=== PATIENT | male | born 1970 | race Caucasian/White ===

== ENCOUNTER 2019-02-07 10:22 | Inpatient (IN) | payer OTHER ==
[2019-02-07 11:16] VITALS: BMI 21.9
--- NOTE | 2019-02-07 11:43 | HP ---
CIWA Score Nausea/Vomitin-No Nausea/No Vomiting Muscle Tremors: None Anxiety: 4-Mod. Anxious/Guarded Agitation: 0-Normal Activity Paroxysmal Sweats: 2 Orientation: 0-Oriented Tacttile Disturbances: 0-None Auditory Disturbances: 0-None Visual Disturbances: 0-None Headache: 0-None Present CIWA-Ar Total Score: 6 - Admission Criteria OASAS Guidelines: Admission for Medically Managed Detox: Requires at least one of the followin. CIWA greater than 12 2. Seizures within the past 24 hours 3. Delirium tremens within the past 24 hours 4. Hallucinations within the past 24 hours 5. Acute intervention needed for co occurring medical disorder 6. Acute intervention needed for co occurring psychiatric disorder 7. Severe withdrawal that cannot be handled at a lower level of care (continued vomiting, continued diarrhea, abnormal vital signs) requiring intravenous medication and/or fluids 8. Admission ROS [facility] Allergies/Adverse Reactions: Allergies Allergy/AdvReac Type Severity Reaction Status Date / Time No Known Allergies Allergy Verified 02/07/19 11:51 History of Present Illness: pt here requesting detox from etoh use , prior detox at this facility 2014 , reports current use 1 pint/day , first age of use 30 , longest sobriety 1 year while in residential program , relapse Oct 2018 after arrest , reports tremors if not drinking, + sweating , anxiety , starts drinking in the mornings , denies seizures, blackouts , current symptoms as above, latest use Wednesday . tobacco : 1/2 ppd , thinking about smoking cessation. PMHX : kitty inguinal hernia, hip OA PSHX ; denies PSych : MDD , anxiety , PTSD , ADD , denies suicide attempts , denies current SI / Hi , denies current psych meds , states has own psychiatrist @ [facility] [address] [place] [address] , monthly visits. SHx : homeless , unemployed , finances habit through illicit activities . Exam Limitations: No Limitations - Ebola screening Have you traveled outside of the country in the last 21 days: No (N) Have you had contact with anyone from an Ebola affected area: No Do you have a fever: No - Review of Systems Constitutional: Loss of Appetite EENT: reports: No Symptoms Reported, Other (glasses) Respiratory: reports: No Symptoms reported Cardiac: reports: No Symptoms Reported GI: reports: No Symptoms Reported : reports: No Symptoms Reported Musculoskeletal: reports: Joint Pain (kitty hips ( chronic )) Neuro: reports: No Symptoms reported Endocrine: reports: No Symptoms Reported Psychiatric: reports: Orientated x3, Depressed Patient History - Patient Medical History Hx Anemia: No Hx Asthma: No Hx Chronic Obstructive Pulmonary Disease (COPD): No Hx Cancer: No Hx Cardiac Disorders: No Hx Congestive Heart Failure: No Hx Hypertension: No Hx Pacemaker: No HX Cerebrovascular Accident: No Hx Seizures: No Hx Dementia: No Hx Diabetes: No Hx Gastrointestinal Disorders: No Hx Liver Disease: No Hx Genitourinary Disorders: No Hx Sexually Transmitted Disorders: No Hx Renal Disease (ESRD): No Hx Thyroid Disease: No Hx Human Immunodeficiency Virus (HIV): No Hx Hepatitis C: No Hx Depression: Yes Hx Suicide Attempt: Yes Hx Bipolar Disorder: No Hx Schizophrenia: No - Patient Surgical History Past Surgical History: No - PPD History Date: 09/08/14 - Smoking Cessation Smoking history: Current every day smoker Have you smoked in the past 12 months: Yes Aproximately how many cigarettes per day: 10 Cigars Per Day: 0 Hx Chewing Tobacco Use: No Initiated information on smoking cessation: No - Substances abused Alcohol Substance route: Oral Frequency: 3-6 times per week Amount used: 1pint of vodka Age of first use: 30 Date of last use: 02/04/19 K2/Spice Substance route: Smoking Frequency: Daily Amount used: 1 gram Age of first use: 42 Date of last use: 02/06/19 Marijuana/Hashish Substance route: Smoking Frequency: 3-6 times per week Amount used: 1 gram Age of first use: 12 Date of last use: 02/06/19 Family Disease History - Family Disease History Family History: Denies Admission Physical Exam [facility] - Vital Signs Vital Signs: Vital Signs - 24 hr 02/07/19 11:07 Temperature 97.7 F Pulse Rate 69 Respiratory 20 Rate Blood Pressure 126/85 - Physical General Appearance: Yes: No Apparent Distress, Appropriately Dressed HEENTM: Yes: EOMI, Hearing grossly Normal, Normocephalic, Normal Voice Respiratory: Yes: Chest Non-Tender, Lungs Clear, Normal Breath Sounds Neck: Yes: No masses,lesions,Nodules, Trachea in good position Cardiology: Yes: Regular Rhythm, Regular Rate, S1, S2 Abdominal: Yes: Normal Bowel Sounds, Non Tender, Soft Back: Yes: Normal Inspection Musculoskeletal: Yes: full range of Motion, Gait Steady Extremities: Yes: Normal Range of Motion, Non-Tender Neurological: Yes: Fully Oriented, Alert, Motor Strength 5/5, Depressed Affect Integumentary: Yes: Warm - Diagnostic (1) Inhalant dependence with other inhalant-induced disorder Current Visit: Yes Status: Acute (2) Alcohol dependence Current Visit: Yes Status: Chronic Qualifiers: Substance use status: in remission Qualified Code(s): F10.21 - Alcohol dependence, in remission (3) Cannabis dependence Current Visit: Yes Status: Chronic (4) Nicotine dependence Current Visit: Yes Status: Chronic Qualifiers: Nicotine product type: cigarettes Inpatient Rehab Admission - Rehab Decision to Admit Inpatient rehab admission?: Yes - Initial Determination Are CD services needed?: Yes Free of communicable disease: Yes Not in need of hospitalization: Yes - Rehab Admission Criteria Previous failed treatment: Yes Poor recovery environment: Yes Comorbidities: Yes Lacks judgement: Yes Patient is meeting Inpatient Rehab admission criteria:: Yes
[2019-02-07] MEDS ORDERED: MAG HYDROX/AL HYDROX/SIMETH 30 ML UNIT-DOSE CUP PO PRN (12:04)
[2019-02-07] MEDS ORDERED: LOPERAMIDE HCL 2 MG CAPSULE PO PRN (12:04)
[2019-02-07] MEDS ORDERED: ACETAMINOPHEN 325 MG TABLET (FP) PO PRN (12:04)
[2019-02-07] MEDS ORDERED: MENTHOL/PHENOL 1 EACH UD MM PRN (12:04)
[2019-02-07] MEDS ORDERED: MAGNESIUM CITRATE 300 ML BOTTLE PO PRN (12:04)
[2019-02-07] MEDS ORDERED: MAGNESIUM HYDROX 2400MG/30ML ORAL SUSPENSION 30 ML CUP PO PRN (12:04)
[2019-02-07] MEDS ORDERED: guaiFENesin 200 MG/10 ML 10 ML UNIT-DOSE CUPS PO PRN (12:04)
[2019-02-07] MEDS ORDERED: P-EPHED 60MG/TRIPROLIDI 2.5MG TABLET PO PRN (12:04)
[2019-02-07] MEDS ORDERED: IBUPROFEN 400 MG TABLET (FP) PO PRN (12:04)
[2019-02-07] MEDS ORDERED: TUBERCULIN PPD 5 TU/0.1ML VIAL ID ONE (13:19)
--- NOTE | 2019-02-07 15:52 | CONSULT ---
[facility] Psychiatric Consult - Data Date of interview: 02/07/19 Admission source: [facility] Identifying data: Readmission to [facility] for this 48 y/o male self- referred for rehabilitation, directly admitted to [address] to address alcohol/cannabis dependence co-morbid with MDD + PTSD and ADD. Patient is single, no children, homeless, unemployed and deprived of financial assistance. Substance Abuse History: Confirmed by patient in this session. Details in current [facility] report as follows : Smoking history: Current every day smoker. Have you smoked in the past 12 months: Yes. Aproximately how many cigarettes per day: 10. Cigars Per Day: 0. Hx Chewing Tobacco Use: No. Initiated information on smoking cessation: No. - Substances abused. Alcohol. Substance route: Oral. Frequency: 3-6 times per week. Amount used: 1pint of vodka. Age of first use: 30. Date of last use: 02/04/19. K2/Spice. Substance route: Smoking. Frequency: Daily. Amount used: 1 gram. Age of first use: 42. Date of last use: 02/06/19. Marijuana/Hashish. Substance route: Smoking. Frequency: 3-6 times per week. Amount used: 1 gram. Age of first use: 12. Date of last use: 02/06/19 Medical History: Patient reports arthritis (both hips) and bilateral inguinal hernia (untreated). Psychiatric History: Distant onset of psychiatric disturbances (adolescence). Patient indicates that he had his first psychiatric hospitalization at age 44. He is known to [facility] + [facility] + [facility] and [facility]. " I have been all over ". Diagnosed with MDD, ADD and PTSD. Mr Rod states that he has been on various medications (lexapro , remeron, sertraline, seroquel) without any sizable efficacy. Patient used to see a psychiatrist at [facility] in [facility]. Dropped out of follow-up about four weeks ago. Not on psychotropic medications. Patient denies history of suicide attempts. Physical/Sexual Abuse/Trauma History: No reported history of abuse. Additional Comment: No toxicology. Mental Status Exam - Mental Status Exam Alert and Oriented to: Time, Place, Person Cognitive Function: Good Patient Appearance: Unkempt, Disheveled Mood: Nervous, Withdrawn, Anxious Affect: Mood Congruent, Constricted Patient Behavior: Fatigued, Appropriate, Cooperative Speech Pattern: Clear, Appropriate Voice Loudness: Normal Thought Process: Goal Oriented Thought Disorder: Not Present Hallucinations: Denies Suicidal Ideation: Denies Homicidal Ideation: Denies Insight/Judgement: Fair Appetite: Good Muscle strength/Tone: Normal Gait/Station: Normal Psychiatric Findings - Problem List ([place] 1, 2,3) (1) Alcohol dependence Current Visit: Yes Status: Chronic Qualifiers: Substance use status: in remission Qualified Code(s): F10.21 - Alcohol dependence, in remission (2) Cannabis dependence Current Visit: Yes Status: Chronic (3) Nicotine dependence Current Visit: Yes Status: Chronic Qualifiers: Nicotine product type: cigarettes (4) Drug-induced mood disorder Current Visit: Yes Status: Chronic (5) History of posttraumatic stress disorder (PTSD) Current Visit: Yes Status: Chronic (6) History of depression Current Visit: Yes Status: Chronic (7) Insomnia Current Visit: Yes Status: Chronic (8) Non-compliance Current Visit: Yes Status: Chronic - Initial Treatment Plan Initial Treatment Plan: Psychoeducation. Sleep hygiene. AA meetings. Motivational counseling. Revisit social stressors (social work team). Relapse prevention (MAT) to be discussed in therapy sessions throughout this hospital course. Support. Groups. Remeron 15 mg po hs. Ordered at patient's request. Side effects/benefits discussed with patient. Informed consent verbalized to Observation.
[2019-02-07 16:26] LABS: HEMATOCRIT 48.7 % (35.4-49); HEMOGLOBIN 16.2 GM/dL (11.7-16.9); MCH 31.2 pg (25.7-33.7); MCHC 33.2 g/dl (32.0-35.9); MEAN CELL VOLUME 93.8 fl (80-96); MEAN PLT VOLUME 8.7 fl (7.5-11.1); PLATELET COUNT 312 K/MM3 (134-434); RBC 5.19 M/mm3 (4.00-5.60); RDW 13.5 % (11.9-15.9); WHITE BLOOD COUNT 9.2 K/mm3 (4.0-10.0)
[2019-02-07 16:38] LABS: ALBUMIN 4.2 g/dl (3.4-5.0); BILIRUBIN,TOTAL 0.4 mg/dL (0.2-1); CALCIUM 9.7 mg/dL (8.5-10.1); CREATININE 0.8 mg/dL (0.55-1.3); POTASSIUM 4.4 mmol/L (3.5-5.1); TOT PROT 7.6 g/dl (6.4-8.2)
--- NOTE | 2019-02-07 19:26 | PN ---
[facility] Progress Note Note: Psychiatry Attending' note (addendum) : Patient is placed under Constant Observation. Reason : suicidal ideation verbalized during a group session. Patient was evaluated earlier by this typewriter assembler. See preceding note. Mr Rod is re-interviewed in a Disposition conference. Presents at conference : Dr Malhotra + clinical supervisor print line Yadira Combs + social science instructor Tricia Brown. Patient is observed as tearful, anxious, angry and despondent over being rejected by relatives. Expressed feelings of sadness, shame and worthlessness. Overwhelmed by his current social stressors. Mr Rod did, however, declare that he has NO suicidal intent or plan at time of this re-examination. Patient is emotionally incontinent, impulsive, clinically dysphoric and potentially at risk for unpredictable behavior. Crisis intervention : support, reassurance, motivational counseling, psychoeducation, empathy and hope : provided to patient. Case discussed with team (nurse on duty, counselor Bandar Mcgovern, Ms Combs and Ms Brown). Patient is receptive to intervention. No escalation. Will maintain constant observation for safety. Psychiatry- Liaison will follow in the morning.
[2019-02-07] MEDS: THIAMINE HCL 100 MG TABLET (FP) PO SCH (21:48)
[2019-02-07] MEDS: MELATONIN 5 MG TABLETS PO PRN (21:48)
[2019-02-07 22:46] LABS: PH,URINE 6.5 (5.0-8.0); URINE APPEARANCE CLEAR; URINE BILIRUBIN NEGATIVE (NEGATIVE); URINE COLOR YELLOW; URINE GLUCOSE (UA) NEGATIVE (NEGATIVE); URINE KETONE NEGATIVE (NEGATIVE); URINE LEUK ESTERASE NEGATIVE (NEGATIVE); URINE NITRITE NEGATIVE (NEGATIVE); URINE PROTEIN NEGATIVE (NEGATIVE)
--- NOTE | 2019-02-08 10:34 | PN ---
[facility] Progress Note Note: PT SEEN IN BED AND ON 1:1 FROM LAST EVENING FOR SAFETY WITH STAFF SITTING IN PATIENT'S ROOM. ALERT O X 3, VERBAL AND CLEAR ARTICULATION BUT APPEARS ANXIOUS WHEN TALKING ABOUT BEING HOMELESS. DENIES SUICIDAL IDEATION. PT WAS REMINDED TO SPEAK TO STAFF ABOUT ANY OF HIS CONCERNS. Vital Signs 02/08/19 02/08/19 03:30 06:53 Temperature 97.7 F Pulse Rate 76 Respiratory 18 18 Rate Blood Pressure 111/69 Laboratory Tests 02/07/19 02/07/19 02/07/19 12:30 12:30 12:30 WBC 9.2 RBC 5.19 Hgb 16.2 Hct 48.7 MCV 93.8 MCH 31.2 MCHC 33.2 RDW 13.5 Plt Count 312 MPV 8.7 Sodium 139 Potassium 4.4 Chloride 107 Carbon Dioxide 29 Anion Gap 3 L BUN 9 Creatinine 0.8 Est GFR (CKD-EPI)AfAm 124.16 Est GFR (CKD-EPI)NonAf 107.13 Random Glucose 123 H Calcium 9.7 Total Bilirubin 0.4 AST 8 L ALT 19 Alkaline Phosphatase 93 Total Protein 7.6 Albumin 4.2 Urine Color Urine Appearance Urine pH Ur Specific [place] Urine Protein Urine Glucose (UA) Urine Ketones Urine Blood Urine Nitrite Urine Bilirubin Urine Urobilinogen Ur Leukocyte Esterase RPR Titer Nonreactive 02/07/19 16:37 WBC RBC Hgb Hct MCV MCH MCHC RDW Plt Count MPV Sodium Potassium Chloride Carbon Dioxide Anion Gap BUN Creatinine Est GFR (CKD-EPI)AfAm Est GFR (CKD-EPI)NonAf Random Glucose Calcium Total Bilirubin AST ALT Alkaline Phosphatase Total Protein Albumin Urine Color Yellow Urine Appearance Clear Urine pH 6.5 D Ur Specific [place] 1.018 Urine Protein Negative Urine Glucose (UA) Negative Urine Ketones Negative Urine Blood Negative Urine Nitrite Negative Urine Bilirubin Negative Urine Urobilinogen 1.0 Ur Leukocyte Esterase Negative RPR Titer PLAN:CONTINUE TO MONITOR PER PROTOCOL.
[2019-02-08] MEDS: PRENATAL VITAMINS W/ FOLIC ACID TABLET (FP) PO SCH (10:52)
--- NOTE | 2019-02-08 12:41 | PN ---
[facility] Progress Note Note: Psychiatry Attending's note (follow-up) : Patient seen. Mr Rod is noted as calm, cooperative and controlled. He endorses feeling depressed about his social problems. However, the patient denies experiencing suicidal ideation. Denies suicidal intent or plan. Feels more hopeful at this time. Patient is well groomed, receptive to teaching and conversant. Clear sensorium. No hallucinations or delusions. Improved mental status. Not in imminent danger to self or others. Constant observation is discontinued. Downgraded to close observation. Will follow as needed.Discussed with staff.
[2019-02-08] MEDS: THIAMINE HCL 100 MG TABLET (FP) PO SCH (21:21)
[2019-02-08] MEDS: MELATONIN 5 MG TABLETS PO PRN (21:21)
[2019-02-09] MEDS: PRENATAL VITAMINS W/ FOLIC ACID TABLET (FP) PO SCH (10:37)
[2019-02-09] MEDS: THIAMINE HCL 100 MG TABLET (FP) PO SCH (21:14)
[2019-02-09] MEDS ORDERED: MIRTAZAPINE 15 MG TABLET (FP) PO SCH (22:00)
[2019-02-10 07:13] VITALS: BP 126/71; PULSE 74; TEMP 98
[2019-02-10] MEDS: PRENATAL VITAMINS W/ FOLIC ACID TABLET (FP) PO SCH (11:34)
--- NOTE | 2019-02-10 12:21 | PN ---
[facility] Progress Note Note: AT ABOUT 12:00 NOON THE NURSE, JOSE NUÑEZ CAME TO THE OFFICE TO NOTIFY EVENTS ADMINISTRATIVE ASSISTANT THAT PATIENT HAD LEFT THE UNIT AND ALSO INFORMED EVENTS ADMINISTRATIVE ASSISTANT THAT EARLIER IN THE MORNING THE PT REFUSED VITAL SIGNS AND BECAME ARGUMENTATIVE ABOUT HIS BREAKFAST TRAY. LATER KNOCKED OFF THE WALL SOAP DISPENSER . REPORTED SECURITY WAS CALLED AND PATIENT WAS ESCORTED OUT OF THE UNIT(PLEASE SEE NURSING NOTES FOR DETAILS OF EVENT). THIS EVENTS ADMINISTRATIVE ASSISTANT FOLLOWED UP WITH CODING ANALYST DOUG MCKENZIE RE :INCIDENT AND SHE CONFIRMED THE PATTERN OF THIS EVENT. Vital Signs - 24 hr 02/10/19 02/10/19 00:30 07:13 Temperature 98.0 F Pulse Rate 74 Respiratory 20 18 Rate Blood Pressure 126/71 Laboratory Tests 02/07/19 02/07/19 02/07/19 12:30 12:30 12:30 WBC 9.2 RBC 5.19 Hgb 16.2 Hct 48.7 MCV 93.8 MCH 31.2 MCHC 33.2 RDW 13.5 Plt Count 312 MPV 8.7 Sodium 139 Potassium 4.4 Chloride 107 Carbon Dioxide 29 Anion Gap 3 L BUN 9 Creatinine 0.8 Est GFR (CKD-EPI)AfAm 124.16 Est GFR (CKD-EPI)NonAf 107.13 Random Glucose 123 H Calcium 9.7 Total Bilirubin 0.4 AST 8 L ALT 19 Alkaline Phosphatase 93 Total Protein 7.6 Albumin 4.2 Urine Color Urine Appearance Urine pH Ur Specific [place] Urine Protein Urine Glucose (UA) Urine Ketones Urine Blood Urine Nitrite Urine Bilirubin Urine Urobilinogen Ur Leukocyte Esterase RPR Titer Nonreactive 02/07/19 16:37 WBC RBC Hgb Hct MCV MCH MCHC RDW Plt Count MPV Sodium Potassium Chloride Carbon Dioxide Anion Gap BUN Creatinine Est GFR (CKD-EPI)AfAm Est GFR (CKD-EPI)NonAf Random Glucose Calcium Total Bilirubin AST ALT Alkaline Phosphatase Total Protein Albumin Urine Color Yellow Urine Appearance Clear Urine pH 6.5 D Ur Specific [place] 1.018 Urine Protein Negative Urine Glucose (UA) Negative Urine Ketones Negative Urine Blood Negative Urine Nitrite Negative Urine Bilirubin Negative Urine Urobilinogen 1.0 Ur Leukocyte Esterase Negative RPR Titer
== END 2019-02-10 10:45 | disposition left against medical advice (07) | DRG 770 ==
LOC: YASAS 10:22 → Y5N 12:07
PROVIDERS: ADMIT Neuromusculoskeletal Medicine & OMM; ATTEND Neuromusculoskeletal Medicine & OMM
PROC: HZ42ZZZ Group Counseling for Substance Abuse Treatment, Cognitive-Behavioral (ICD-10-PCS; principal; 2019-02-07)
DX: F10.20 Alcohol dependence, uncomplicated (principal); F12.20 Cannabis dependence, uncomplicated; F17.210 Nicotine dependence, cigarettes, uncomplicated; F19.20 Other psychoactive substance dependence, uncomplicated; R45.851 Suicidal ideations; F19.24 Other psychoactive substance dependence with psychoactive substance-induced mood disorder; F43.10 Post-traumatic stress disorder, unspecified; F32.9 Major depressive disorder, single episode, unspecified; G47.00 Insomnia, unspecified; R63.4 Abnormal weight loss; Z68.22 Body mass index [BMI] 22.0-22.9, adult; Z91.19 Patient's noncompliance with other medical treatment and regimen
CPT/HCPCS: 36415; 80053; 81003; 85027; 86593